=== PATIENT | male | born 1975 | race Caucasian/White ===

== ENCOUNTER 2019-04-04 11:59 | Emergency (ER) | payer SELFPAY ==
[~2019-04-04] VITALS: Ht 162.6 cm; Wt 120.0 kg
[2019-04-04 12:04] VITALS: Ht 162.6 cm; Wt 120.0 kg
[2019-04-04] MEDS ORDERED: SOD CHLORIDE 0.9% 1,000 ML IV STA (12:19)
--- NOTE | 2019-04-04 12:22 | ERD ---
ER Documentation Chief Complaint Chief Complaint SUDDEN ONSET OF DIZZINESS HPI 43-year-old male presenting with complaints of sudden onset lightheadedness and darkening of his vision while he was at work today. He lowered himself to the ground because he felt like he was about to pass out. He felt somewhat nauseated but had no vomiting. Denies any room spinning dizziness. No chest pain, no shortness of breath, no focal weakness or numbness, no recent illnesses, no fevers or chills. ROS All systems reviewed and are negative except as per history of present illness. Medications Home Meds No Active Prescriptions or Reported Meds Allergies Allergies: Coded Allergies: No Known Allergy (Unverified , 04/04/19) PMhx/Soc History of Surgery: Yes (Cataract) Hx Miscellaneous Medical Probl: Yes (Prediabetes) Hx Alcohol Use: No Hx Substance Use: No Hx Tobacco Use: No FmHx Father had pancreatic cancer Family History: No diabetes Physical Exam Vitals Vital Signs Date Temp Pulse Resp B/P (MAP) Pulse Ox O2 O2 Flow FiO2 Time Delivery Rate 04/04/19 73 18 131/79 99 Room Air 13:37 (96) 04/04/19 98.4 67 16 132/74 98 Room Air 12:50 (93) 04/04/19 97.8 85 18 136/70 99 12:04 (92) Physical Exam Const: No acute distress Head: Atraumatic Eyes: Normal Conjunctiva, PERRLA, EOMI, no nystagmus ENT: Normal External Ears, Nose and Mouth. Neck: Full range of motion. No meningismus. Resp: Clear to auscultation bilaterally Cardio: Regular rate and rhythm, no murmurs Abd: Soft, non tender, non distended. Normal bowel sounds Skin: No petechiae or rashes Back: No midline or flank tenderness Ext: No cyanosis, or edema Neur: Awake and alert, oriented x3, no facial asymmetry, cranial nerves inta ct, strength and sensations intact in all 4 extremity. Negative Romberg sign. Normal cerebellar exam. Psych: Normal Mood and Affect Result Diagram: 04/04/19 1230 04/04/19 1230 Results 24 hrs Laboratory Tests Test 04/04/19 12:26 04/04/19 12:30 04/04/19 12:37 Bedside Glucose 163 mg/dL White Blood Count 10.1 10^3/ul Red Blood Count 5.19 10^6/ul Hemoglobin 16.1 g/dl Hematocrit 47.9 % Mean Corpuscular Volume 92.3 fl Mean Corpuscular Hemoglobin 31.0 pg Mean Corpuscular 33.6 g/dl Hemoglobin Concent Red Cell Distribution Width 13.0 % Platelet Count 163 10^3/UL Mean Platelet Volume 10.5 fl Immature Granulocytes % 0.400 % Neutrophils % 84.1 % Lymphocytes % 10.3 % Monocytes % 4.7 % Eosinophils % 0.2 % Basophils % 0.3 % Nucleated Red Blood Cells % 0.0 /100WBC Immature Granulocytes # 0.040 10^3/ul Neutrophils # 8.5 10^3/ul Lymphocytes # 1.0 10^3/ul Monocytes # 0.5 10^3/ul Eosinophils # 0.0 10^3/ul Basophils # 0.0 10^3/ul Nucleated Red Blood Cells # 0.0 10^3/ul Sodium Level 140 mmol/L Potassium Level 4.0 mmol/L Chloride Level 104 mmol/L Carbon Dioxide Level 29 mmol/L Anion Gap 7 Blood Urea Nitrogen 13 mg/dl Creatinine 0.94 mg/dl Est Glomerular Filtrat > 60 mL/min Rate mL/min Glucose Level 174 mg/dl Calcium Level 9.2 mg/dl Troponin I < 0.012 ng/ml Urine Color YELLOW Urine Clarity SLIGHTLY CLOUDY Urine pH 5.0 Urine Specific [place] 1.019 Urine Ketones TRACE mg/dL Urine Nitrite NEGATIVE mg/dL Urine Bilirubin NEGATIVE mg/dL Urine Urobilinogen NEGATIVE mg/dL Urine Leukocyte Esterase NEGATIVE [place]/ul Urine Microscopic RBC 0 /HPF Urine Microscopic WBC 1 /HPF Urine Hemoglobin NEGATIVE mg/dL Urine Glucose NEGATIVE mg/dL Urine Total Protein NEGATIVE mg/dl Current Medications Medications Dose Sig/Dave Start Time Status Last (Trade) Ordered Route PRN Stop Time Admin Dose Reason Admin Sodium 1,000 ml @ Q1H STAT 04/04/19 DC 04/04/19 Chloride 1,000 mls/hr IV 12:19 04/04/19 12:38 13:18 Procedures/MDM EMERGENT LABS AND DIAGNOSTIC STUDIES: Lab Results above were reviewed and interpreted by me. CBC: no anemia or evidence of infection BMP: No e/o clinically significant electrolyte abnormality severe acidosis, alkalosis, renal failure, diabetic ketoacidosis Troponin within normal limits, not indicative of cardiac ischemia 12-lead EKG was interpreted by Racquel Ricardo MD: Normal Sinus Rhythm with ventricular rate of 76 beats per minute Normal axis Normal intervals No acute ST or T wave changes suggestive of acute ischemia or STEMI. Initial Nursing notes reviewed. Previous Medical Records requested via the Electronic Health Record. EMERGENCY DEPARTMENT COURSE / MEDICAL DECISION MAKING: Patient is presenting with sudden onset lightheadedness. Vitals are unremarkable. He has no signs of a stroke on exam. It sounds like this is more of a near syncopal episode. The patient has no notable risk factors for ACS, PE, or CVA. He was treated with IV fluids with improvement of his symptoms. Labs were unremarkable. I feel she is stable for discharge at this time. He was ambulating with a steady gait around the ER. Return precautions were discu ssed. Follow-up with PCP recommended within 1 week Patient's blood pressure was elevated (>120/80) but appears stable without evidence of hypertensive emergency or urgency. The patient was counseled about the risks of hypertension and urged to pursue outpatient monitoring and therapy within a week with their primary care physician. Departure Diagnosis: Primary Impression: Dizziness Condition: Stable ELLY RICARDO MD Apr 04, 2019 12:22
[2019-04-04 13:37] VITALS: BP 131/79; PULSE 73; RESP 18
== END 2019-04-04 13:48 | disposition home or self-care (01) ==
LOC: E/R 11:59
DX: R42 Dizziness and giddiness (principal)
CPT/HCPCS: 36415; 80048; 81001; 82962; 84484; 85025; 93005; 96360; 99284; J7030; 81003

== ENCOUNTER 2019-06-28 10:00 | Emergency (ER) | payer SELFPAY ==
[~2019-06-28] VITALS: Ht 167.6 cm; Wt 109.1 kg
[~2019-06-28 10:00] MED LIST: MECL-77 PO; MECL12.574 PO; METF100010 PO; PRED20TA PO
[2019-06-28 10:01] VITALS: Ht 167.6 cm; Wt 109.1 kg
[2019-06-28] MEDS ORDERED: SOD CHLORIDE 0.9% 1,000 ML IV STA (10:27)
[2019-06-28] MEDS ORDERED: KETOROLAC 15 MG INJ IV STA (10:27)
[2019-06-28] MEDS ORDERED: MECLIZINE 12.5 MG TAB PO ONE (10:30)
[2019-06-28 12:28] VITALS: BP 134/78; PULSE 81; RESP 18
== END 2019-06-28 12:29 | disposition home or self-care (01) ==
LOC: E/R 10:00
DX: R42 Dizziness and giddiness (principal); E11.9 Type 2 diabetes mellitus without complications; Z79.84 Long term (current) use of oral hypoglycemic drugs
CPT/HCPCS: 36415; 70450; 80048; 85025; 99285; J1885; J7030